=== PATIENT | female | born 1960 | race Caucasian/White ===

== ENCOUNTER → 2021-11-14 11:44 | Outpatient (CLI) | payer OTHER, SELFPAY ==
--- NOTE | ~2021-11-14 | US_ITS ---
EXAMINATION: US thyroid DATE: 11/14/2021 12:06 INDICATION: Nontoxic goiter. TECHNIQUE: Multiple ultrasound images of the thyroid were obtained. COMPARISON: Ultrasound 09/23/2009 FINDINGS: The right thyroid lobe measures 3.7 x 1.4 x 1.5 cm. The left thyroid lobe measures 4.6 x 2.7 x 3.1 c m. In the left thyroid lobe, there is a 3.7 cm solid, hypoechoic, vexqp-wkkp-vgvb nodule with smooth margin without echogenic foci (TI-RADS TR4), worsened from 09/23/2009. In the right thyroid lobe, ther e is an 8 mm solid, hypoechoic, imbxz-vpoc-qvoy nodule with ill-defined margin without echogenic foci (TR4). In the right thyroid lobe, there is a 7 mm solid, isoechoic, rcxbw-azpt-wlnq nodule with ill- defined margin without echogenic foci (TR3). IMPRESSION: 1. Multinodular goiter. Ultrasound-guided fine-needle aspiration of the left thyroid nodule is recomm ended. Reviewed, dictated and finalized at location A. IMPRESSION: 1. Multinodular goiter. Ultrasound-guided fine-needle aspiration of the left th yroid nodule is recommended.
== END ==
PROVIDERS: PCP Family Medicine; Visit Provider Family Medicine
DX: E04.2 Nontoxic multinodular goiter (principal)
CPT/HCPCS: 76536

== ENCOUNTER 2021-11-21 13:07 | Outpatient (CLI) | payer OTHER, SELFPAY ==
--- NOTE | ~2021-11-21 | US_ITS ---
EXAMINATION: US FNA w image guidance DATE: 11/21/2021 14:34 INDICATION: Left thyroid nodule TECHNIQUE: A time-out was performed to verify the patient's name, date of , and procedure to be performed . The procedure and its benefits and risks were discussed with the patient. Risks specifically discus sed included bleeding and infection. The patient understood the risks and agreed to proceed. The neck was prepped and draped in the usual sterile manner. 4 mL 1% lidocaine was used for local anesthesia . 6 passes were made with a 25G needle into the lesion. Appropriate needle location was documented with continuous sonographic guidance. The specimens were passed to the soil technologist in the room. A sterile bandage was applied. There were no immediate complications. FINDINGS: Grayscale ultrasound images demonstrate biopsy needles advanced into a 3.9 cm predominantly solid TI RADS 4 left thyroid nodule. IMPRESSION: 1. Successful ultrasound-guided fine needle aspiration of a 3.9 cm TI RADS 4 left thyroid nodule. Reviewed, dictated and finalized at location A. IMPRESSION: 1. Successful ultrasound-guided fine needle aspiration of a 3.9 cm TI RADS 4 l eft thyroid nodule.
== END 2021-11-21 13:08 | disposition home or self-care (01) ==
PROVIDERS: PCP Family Medicine; Visit Provider Family Medicine
DX: E04.1 Nontoxic single thyroid nodule (principal)
CPT/HCPCS: 10005; 88173; 88305

== ENCOUNTER → 2022-09-20 14:18 | Outpatient (CLI) | payer OTHER, SELFPAY ==
--- NOTE | ~2022-09-20 | MM_ITS ---
EXAMINATION: MM screening raven BI w pat HISTORY: Screening mammogram TECHNIQUE: Craniocaudal and mediolateral oblique 3-D tomosynthesis images were obtained and synthetic 2-D images were generated. CAD analysis was submitted and interpreted. COMPARISON: 05/29/2013 bilateral screening mammogram examination BREAST PARENCHYMAL COMPOSITION: There are scattered areas of fibroglandular density. FINDINGS: Benign appearing stable outer mid right intramammary lymph node There is no evidence of nola picious mass, calcification, or architectural distortion to suggest malignancy in either breast. Ther e has been no suspicious interval change. IMPRESSION: 1. No mammographic evidence of malignancy. 2. Recommend routine screening mammography in one year. BI-RADS Category 2: Benign finding(s). Reviewed, dictated and finalized at location A. IN CLEANER
== END ==
PROVIDERS: PCP Family Medicine; Visit Provider Family Medicine
DX: Z12.31 Encounter for screening mammogram for malignant neoplasm of breast (principal)
CPT/HCPCS: 77063; 77067

== ENCOUNTER 2023-01-12 00:53 | Day surgery (SDC) | payer OTHER, SELFPAY ==
[2023-01-02 13:53] VITALS: BMI 26.6
--- NOTE | 2023-01-11 12:43 | WPDANESEPPF ---
Anes - Initial Pre Proc Eval Procedure: Operation Date: 01/12/23 13:15 Proposed Procedures p Screening Colonoscopy - Brian Crow MD Date/Time: 01/11/23 12:43 Surgeon: Brian Crow MD Pre Op Diagnosis: neoplasm screening Patient Data Age: 62 Gender: F Height: 1.75 m Weight: 82 kg Allergies Allergy/AdvReac Type Severity Reaction Status Date / Time No Known Allergies Allergy Verified 01/12/23 12:00 Home Medications Medication Instructions Recorded Confirmed Type albuterol sulfate 90 mcg/actuation 2 puff inhalation Q4-6H PRN 11/10/22 01/12/23 History aerosol inhaler shortness of breath or wheezing bupropion HCl 300 mg 24 hr tablet, 300 mg PO QAM 11/10/22 01/12/23 History extended release escitalopram oxalate 10 mg tablet 20 mg PO DAILY 11/10/22 01/12/23 History folic acid 1 mg tablet 1 mg PO DAILY 11/10/22 01/12/23 History gabapentin 300 mg capsule 300 mg PO TID 11/10/22 01/12/23 History golimumab 50 mg/0.5 mL 50 mg subcut MONTHLY 11/10/22 01/12/23 History subcutaneous syringe (Simponi) methotrexate sodium (PF) 25 mg/mL 20 mg subcut WEEKLY 11/10/22 01/12/23 History injection solution rosuvastatin 20 mg tablet 20 mg PO DAILY 11/10/22 01/12/23 History aspirin 81 mg capsule 81 mg PO DAILY 01/02/23 01/12/23 History Patient hx anesthesia problems: none Family hx anesthesia problems: none Results Review: All pre-operative results and documents have been reviewed as part of the pre-operative evaluation. [facility] Past Medical History Medical History (Updated 01/12/23 @ 12:19 by Brian Crow MD) Asthma COPD (chronic obstructive pulmonary disease) Coronary atherosclerosis Elevated blood-pressure reading, without diagnosis of hypertension Emphysema of lung History of lung cancer Hyperlipidemia Impaired fasting glucose Major depressive disorder, recurrent, in partial remission Nontoxic goiter, unspecified Personal history of other malignant neoplasm of bronchus and lung Pure hypercholesterolemia, unspecified Rheumatoid arthritis, unspecified Social History Social History (System 12/06/22 @ 09:20 by Matteo Encinas) Smoking packs per day: 2 Smoking cigarettes per day: 40.0 Years smoked: 40 Smoking pack-years: 80.00 Smoking status: Former smoker Tobacco type: cigarettes Second hand tobacco smoke exposure: Yes Alcohol intake: current Drinks per week: 21 Substance use: current Substance use type: marijuana Other substance usage details: three times a week Lack of Transportation: No Lack of Food: Never True Current Housing: I Have Housing Concerned About Future Housing: No Difficulty Paying Gas/Electric Bills: No Difficulty Paying for Meds: No Currently Unemployed: No Difficulty w/ Childcare or Family Care: No Living arrangements: with family Occupation/Education: retired Gender identity (if verbalized by the patient): Female Sexual Orientation (if Verbalized by the Patient): Straight or Heterosexual Spiritual care concerns: No Anes - Eval Final PreProcedure Day of Procedure 01/11/23 12:43 Patient weight: overweight Heart: regular rate and rhythm Lungs: clear to auscultation Airway: Mallampati scale class II Neurological: alert and oriented Last oral intake: >/= 8 hours ASA classification: III Emergent: no Anesthetic plan: proceed Anesthesia type and monitoring: general GIVS and standard monitoring Results Review: All pre-operative results and documents have been reviewed as part of the pre-operative evaluation. Informed Consent: The patient's anesthetic plan and its attendant risks and benefits were discussed with the patient/family/POA. Questions were solicited and answers provided to the satisfaction of the patient/family/POA.
[2023-01-12 12:01] VITALS: BP 123/69; PULSE 64; RESP 16; TEMP 36.1; O2SAT 98
[2023-01-12] MEDS: LACTATED RINGERS 1,000 ML 150 ML IV CONT (12:04)
--- NOTE | 2023-01-12 12:18 | PM.HPGS ---
History of Present Illness History of Present Illness Consent: Risks, benefits, and alternatives have been discussed and questions answered. Patient agrees to proceed with procedure. Chief complaint: neoplasm screening Narrative: Smitha Hammond is a 62 year old female Presents for screening colonoscopy. Patient's current weight appetite bowel movements are normal. Patient denies abdominal pain. She has had no bleeding. Family history is significant for a cousin with colon cancer. Patient's previous colonoscopy in 2009 was unremarkable. Review of Systems Review of Systems: Review of systems noncontributory. [facility] Past Medical History Medical History (Updated 01/12/23 @ 12:19 by Brian Crow MD) Asthma COPD (chronic obstructive pulmonary disease) Coronary atherosclerosis Elevated blood-pressure reading, without diagnosis of hypertension Emphysema of lung History of lung cancer Hyperlipidemia Impaired fasting glucose Major depressive disorder, recurrent, in partial remission Nontoxic goiter, unspecified Personal history of other malignant neoplasm of bronchus and lung Pure hypercholesterolemia, unspecified Rheumatoid arthritis, unspecified Social History Social History (System 12/06/22 @ 09:20 by Matteo Encinas) Smoking packs per day: 2 Smoking cigarettes per day: 40.0 Years smoked: 40 Smoking pack-years: 80.00 Smoking status: Former smoker Tobacco type: cigarettes Second hand tobacco smoke exposure: Yes Alcohol intake: current Drinks per week: 21 Substance use: current Substance use type: marijuana Other substance usage details: three times a week Lack of Transportation: No Lack of Food: Never True Current Housing: I Have Housing Concerned About Future Housing: No Difficulty Paying Gas/Electric Bills: No Difficulty Paying for Meds: No Currently Unemployed: No Difficulty w/ Childcare or Family Care: No Living arrangements: with family Occupation/Education: retired Gender identity (if verbalized by the patient): Female Sexual Orientation (if Verbalized by the Patient): Straight or Heterosexual Spiritual care concerns: No Meds Home Medications and Allergies Home Medications Medication Instructions Recorded Confirmed Type albuterol sulfate 90 mcg/actuation 2 puff inhalation Q4-6H PRN 11/10/22 01/12/23 History aerosol inhaler shortness of breath or wheezing bupropion HCl 300 mg 24 hr tablet, 300 mg PO QAM 11/10/22 01/12/23 History extended release escitalopram oxalate 10 mg tablet 20 mg PO DAILY 11/10/22 01/12/23 History folic acid 1 mg tablet 1 mg PO DAILY 11/10/22 01/12/23 History gabapentin 300 mg capsule 300 mg PO TID 11/10/22 01/12/23 History golimumab 50 mg/0.5 mL 50 mg subcut MONTHLY 11/10/22 01/12/23 History subcutaneous syringe (Simponi) methotrexate sodium (PF) 25 mg/mL 20 mg subcut WEEKLY 11/10/22 01/12/23 History injection solution rosuvastatin 20 mg tablet 20 mg PO DAILY 11/10/22 01/12/23 History aspirin 81 mg capsule 81 mg PO DAILY 01/02/23 01/12/23 History Allergies Allergy/AdvReac Type Severity Reaction Status Date / Time No Known Allergies Allergy Verified 01/12/23 12:00 Vital Signs Vital Signs - 24 hr 01/12/23 12:01 Temperature 96.9 F L Pulse Rate 64 Respiratory Rate 16 Blood Pressure 123/69 Pulse Oximetry 98 Oxygen Delivery Room Air Exam Narrative: Physical exam reveals patient to be alert. Vital signs stable. HEENT exam is unremarkable. Patient is anicteric. Lungs are clear to auscultation and percussion. Heart is without murmur or extra sounds. Abdomen bowel sounds present soft nontender with no organomegaly. Digital external rectal exam is normal. Assessment and Plan Assessment and plan (1) Encounter for screening colonoscopy: Code(s): Z12.11 - Encounter for screening for malignant neoplasm of colon Status: Acute Assessment and Plan: Patient presen
[2023-01-12 13:46] VITALS: BP 111/69; PULSE 64; RESP 22; O2SAT 97
[2023-01-12 13:56] VITALS: BP 118/85; PULSE 65; RESP 18; O2SAT 97
[2023-01-12 14:06] VITALS: BP 112/89; PULSE 60; RESP 20; O2SAT 95
== END 2023-01-12 14:10 | disposition home or self-care (01) ==
PROVIDERS: PCP Family Medicine; Visit Provider Internal Medicine Gastroenterology
PROC: 0DJD8ZZ Inspection of Lower Intestinal Tract, Via Natural or Artificial Opening Endoscopic (ICD-10-PCS; CPT 45378; principal; 2023-01-12 13:15)
DX: Z12.11 Encounter for screening for malignant neoplasm of colon (principal); K64.8 Other hemorrhoids; I25.10 Atherosclerotic heart disease of native coronary artery without angina pectoris; J43.9 Emphysema, unspecified; F33.41 Major depressive disorder, recurrent, in partial remission; E78.00 Pure hypercholesterolemia, unspecified; M06.9 Rheumatoid arthritis, unspecified; Z85.118 Personal history of other malignant neoplasm of bronchus and lung; Z87.891 Personal history of nicotine dependence; Z79.51 Long term (current) use of inhaled steroids; Z79.82 Long term (current) use of aspirin; F12.90 Cannabis use, unspecified, uncomplicated; Z79.620 Long term (current) use of immunosuppressive biologic
CPT/HCPCS: 45378; J2704; J7120

== ENCOUNTER 2023-06-12 15:06 | Emergency (ER) | payer OTHER, SELFPAY ==
--- NOTE | ~2023-06-12 | XR_ITS ---
EXAMINATION: XR chest 2V DATE: 06/12/2023 15:43 INDICATION: Bradycardia. High fever. TECHNIQUE: frontal and lateral views of the chest were obtained. COMPARISON: Chest radiograph dated 07/23/2017 FINDINGS: Unchanged mild elevation the left hemidiaphragm and elevation the left hemidiaphragm and slight leftw alejandro deviation of the trachea likely reflecting volume loss related to prior left upper lobectomy for biopsy-proven lung cancer. Unchanged mild linear discoid atelectasis/scarring at the right lung base. No new airspace opacities, pulmonary edema, pleural effusion or pneumothorax. Heart size is normal. Mild thoracic levocurvature with mild spondylosis. IMPRESSION: 1. Chronic volume loss in the left hemithorax consistent with prior left upper lobectomy. 2. Chronic mild linear atelectasis/scarring at the right lung base. No acute cardiopulmonary disease. Reviewed, dictated and finalized at location A. ER MANAGER IMPRESSION: 1. Chronic volume loss in the left hemithorax consistent with prior left upper lobectomy. 2. Chronic mild linear atelectasis/scarring at the right lung base. No acute ca rdiopulmonary disease.
[2023-06-12 15:17] VITALS: BP 141/80; PULSE 116; RESP 24; TEMP 40.1; O2SAT 97
--- NOTE | 2023-06-12 15:20 | ED.GENADULT ---
HPI - General Adult General Chief complaint: Upper Respiratory Infection Stated complaint: Chills/Bodyaches Time Seen by Provider: 06/12/23 15:20 Source: patient, RN notes reviewed and old records reviewed Mode of arrival: ambulatory Limitations: no limitations History of Present Illness HPI narrative: 62-year-old female presents to the [facility] with complaints of body aches, chills 1st 2-3 days. Had taken ibuprofen approximately 10:00 a.m. this morning. No other treatment prior to arrival Patient reports being immunocompromised, left upper lobectomy Patient denies any other symptoms. Related Data Home Medications Medication Instructions Recorded Confirmed albuterol sulfate 90 mcg/actuation 2 puff inhalation Q4-6H PRN 11/10/22 06/12/23 aerosol inhaler shortness of breath or wheezing bupropion HCl 300 mg 24 hr tablet, 300 mg PO QAM 11/10/22 06/12/23 extended release escitalopram oxalate 10 mg tablet 20 mg PO DAILY 11/10/22 06/12/23 folic acid 1 mg tablet 1 mg PO DAILY 11/10/22 06/12/23 gabapentin 300 mg capsule 300 mg PO TID 11/10/22 06/12/23 golimumab 50 mg/0.5 mL 50 mg subcut MONTHLY 11/10/22 06/12/23 subcutaneous syringe (Simponi) methotrexate sodium (PF) 25 mg/mL 20 mg subcut WEEKLY 11/10/22 06/12/23 injection solution rosuvastatin 20 mg tablet 20 mg PO DAILY 11/10/22 06/12/23 aspirin 81 mg capsule 81 mg PO DAILY 01/02/23 06/12/23 Allergies Allergy/AdvReac Type Severity Reaction Status Date / Time No Known Allergies Allergy Verified 06/12/23 15:18 Review of Systems Review of Systems: All systems reviewed & are unremarkable except as noted in HPI and below Constitutional: Constitutional: Reports as per HPI, Reports body ache(s), Reports chills and Reports fever(s) Eyes: Eyes: Reports no additional eye complaints ENT: Reports system reviewed and no additional complaints, except as documented Cardiovascular: Cardiovascular: Reports no additional cardiovascular complaints, Denies chest pain and Denies dyspnea Respiratory: Respiratory: Reports no additional respiratory complaints, Denies chest congestion, Denies cough and Denies dyspnea Gastrointestinal: Gastrointestinal: Reports no additional gastrointestinal complaints, Denies abdominal pain, Denies nausea and Denies vomiting Musculoskeletal: Musculoskeletal: Reports no additional musculoskeletal complaints Integumentary/Breasts: Skin/Breast: Reports system reviewed and no additional complaints, except as docu Neurologic: Reports system reviewed and no additional complaints, except as documented Psychiatric: Psychiatric: Reports no additional psychiatric complaints Allergic/Immunologic: Allergic/Immunologic: Reports no additional allergic/immunologic complaints [facility] Past Medical History Medical History Asthma COPD (chronic obstructive pulmonary disease) Coronary atherosclerosis Elevated blood-pressure reading, without diagnosis of hypertension Emphysema of lung History of lung cancer Hyperlipidemia Impaired fasting glucose Major depressive disorder, recurrent, in partial remission Nontoxic goiter, unspecified Personal history of other malignant neoplasm of bronchus and lung Pure hypercholesterolemia, unspecified Rheumatoid arthritis, unspecified Surgical History Surgical History History of 1986 and 1989 History of D&C 1985 History of lobectomy of lung Left upper lobectomy 2013 Family History Family History Father , of sepsis Diabetes mellitus Mother , age 29 of brain tumor Brain cancer Social History Social History Smoking packs per day: 2 Smoking cigarettes per day: 40.0 Years smoked: 40 Smoking pack-years: 80.00 Smoking status: Former smoker Tobacco type:
[2023-06-12 15:28] VITALS: TEMP 39.4
[2023-06-12] MEDS: ACETAMINOPHEN 500 MG TABLET 1000 MG PO (15:28)
[2023-06-12 16:18] VITALS: PULSE 88; RESP 16; TEMP 37.4; O2SAT 96
== END 2023-06-12 16:22 | disposition home or self-care (01) ==
PROVIDERS: Emergency Provider Nurse Practitioner; PCP Family Medicine
DX: B34.9 Viral infection, unspecified (principal); Z20.2 Contact with and (suspected) exposure to infections with a predominantly sexual mode of transmission; Z87.891 Personal history of nicotine dependence; F12.90 Cannabis use, unspecified, uncomplicated; J44.9 Chronic obstructive pulmonary disease, unspecified; I25.10 Atherosclerotic heart disease of native coronary artery without angina pectoris; E78.5 Hyperlipidemia, unspecified; E78.00 Pure hypercholesterolemia, unspecified; M06.9 Rheumatoid arthritis, unspecified; Z85.118 Personal history of other malignant neoplasm of bronchus and lung; Z90.2 Acquired absence of lung [part of]; Z79.82 Long term (current) use of aspirin
CPT/HCPCS: 71046; 81003; 87086; 87426; 87804; 99213; A9270; C9803; G0463

== ENCOUNTER 2025-06-03 10:15 | Outpatient (CLI) | payer MEDICARE, OTHER, SELFPAY ==
--- NOTE | ~2025-06-03 | US_ITS ---
EXAMINATION: US thyroid DATE: 06/03/2025 10:59 INDICATION: Thyroid nodules TECHNIQUE: Multiple ultrasound images of the thyroid were obtained. COMPARISON: 11/14/2021 FINDINGS: The right thyroid lobe measures 4.3 x 1.5 x 1.3 cm. The left thyroid lobe measures 5.4 x 2.7 x 2.9 Isthmus: 7 mm A 1.1 cm nodule described by technologist on worksheet is not clearly identified on sonographic images provided. 3.7 x 2.9 x 2.3 cm nodular mass in the midpole of the left lobe not clearly changed by size. Several subcentimeter ill-defined TI-RADS 3-4 nodules are noted in both right and left lobes. IMPRESSION: 1. Multinodular appearance of the thyroid including the largest nodule or mass in the left lobe which is stable by size criteria favoring benign etiology. BI- RADS 4. 2. Several TI-RADS 3 to TI-RADS 4 lesions in the thyroid too small to reliably sample with FNA. Twelve-month surveillance ultrasound is recommended. RECOMMENDATION: Follow-up surveillance ultrasound exam in 12 months with recommended date of next exam on or about June 03, 2026. Repeat examination sooner as clinically appropriate. Reviewed, dictated and finalized at location A. T SERVICES MANAGER IMPRESSION: 1. Multinodular appearance of the thyroid including the largest nodule or mass in the left lobe which is stable by size criteria favoring benign etiology. BI- RADS 4. 2. Several TI-RADS 3 to TI-RADS 4 lesions in the thyroid too small to reliably sample with FNA. Twelve-month surveillance ultrasound is recommended. RECOMMENDATION: Follow-up surveillance ultrasound exam in 12 months with recomm ended date of next exam on or about June 03, 2026. Repeat examination soone r as clinically appropriate.
== END 2025-06-03 10:16 | disposition home or self-care (01) ==
LOC: MICIMG 10:15
PROVIDERS: PCP Family Medicine; Visit Provider Family Medicine
DX: E04.2 Nontoxic multinodular goiter (principal); R93.89 Abnormal findings on diagnostic imaging of other specified body structures
CPT/HCPCS: 76536